=== PATIENT | male | born 1935 | race Caucasian/White ===

== ENCOUNTER 2017-01-13 10:46 | Emergency (ER) | payer MEDICARE, OTHER ==
[2017-01-13 11:38] LABS: BASOPHILS 0.1 % (0-2); EOSINOPHILS 1.7 % (0-7); HEMATOCRIT 46.1 % (42.0-54.0); HEMOGLOBIN 15.7 g/dL (13.5-17.5); IMMATURE GRANULOCYTES 0.1 % (0-5); MCH 29.8 pg (26.0-34.0); MCHC 34.1 g/dL (31.0-37.0); MCV 87.6 fL (80.0-100.0); MEAN PLATELET VOLUME 10.1 fL (7.4-10.4); MONOCYTES 9.5 % (2-11); NEUTROPHILS 68.6 % (40-80); PLATELET COUNT 192 10x3/uL (130-400); RBC 5.26 10x6/uL (4.20-6.10); RDW 12.9 % (11.5-14.5)
[2017-01-13 11:54] LABS: ANION GAP 10.8 mmol/L (8-16); BILIRUBIN - TOTAL 0.91 mg/dL (0.2-1.3); CALCIUM 8.7 mg/dL (8.5-10.1); CREATININE - SERUM 1.6 mg/dL (0.6-1.3); POTASSIUM - SERUM 3.8 mmol/L (3.5-5.1); PROTEIN - SERUM 7.6 g/dL (6.4-8.2)
== END 2017-01-13 13:00 | disposition home or self-care (01) ==
LOC: D.ER 10:46
PROVIDERS: Emergency Medicine
DX: R42 Dizziness and giddiness (principal); I10 Essential (primary) hypertension; S00.03XA Contusion of scalp, initial encounter; W19.XXXA Unspecified fall, initial encounter; Y93.89 Activity, other specified; Y92.019 Unspecified place in single-family (private) house as the place of occurrence of the external cause; S51.811A Laceration without foreign body of right forearm, initial encounter; T42.8X5A Adverse effect of antiparkinsonism drugs and other central muscle-tone depressants, initial encounter; G20 Parkinson's disease

== ENCOUNTER 2017-01-13 14:18 | Emergency (ER) | payer MEDICARE, OTHER | END 2017-01-13 15:51 | disposition left against medical advice (07) | LOC: D.ER 14:18 | DX: R42 Dizziness and giddiness (principal) ==